=== PATIENT | male | born 1990 | race Caucasian/White ===

== ENCOUNTER 2017-03-31 11:15 | Emergency (ER) | payer OTHER ==
[~2017-03-31] VITALS: Ht 195.5 cm; Wt 98.9 kg
[~2017-03-31 11:15] MED LIST: AMOXICILLIN500 MG PO; ATARAX25 MG PO; BENADR; CLINDAMYCIN HC300 MG PO; CLINDAMYCIN150 MG PO; IBU800 M1 PO; KEFLEX500 M1 PO; KEFLEX500 MG PO; MOTRIN800 MG PO; NAPROSYN500 MG PO; VICODIN ES 7501 TAB PO; ZOVIRAX800 MG PO
[2017-03-31] MEDS ORDERED: NAPROSYN500 MG PO (14:15)
[2017-03-31] MEDS ORDERED: CYCLOBENZAPRINE10 MG PO (14:15)
== END 2017-03-31 14:27 | disposition home or self-care (01) ==
LOC: ED 11:15
DX: S50.02XA Contusion of left elbow, initial encounter (principal); S80.02XA Contusion of left knee, initial encounter; F17.200 Nicotine dependence, unspecified, uncomplicated; Z91.040 Latex allergy status; Z79.899 Other long term (current) drug therapy; V49.88XA Car occupant (driver) (passenger) injured in other specified transport accidents, initial encounter; Y93.89 Activity, other specified; Y92.89 Other specified places as the place of occurrence of the external cause; Y99.8 Other external cause status

== ENCOUNTER 2019-10-30 18:11 | Inpatient (IN) | payer SELFPAY ==
[~2019-10-30] VITALS: Ht 190.5 cm; Wt 86.0 kg
[~2019-10-30 18:11] MED LIST changes: +CEPHALEXIN500 M1 PO; +CYCLOBENZAPRINE10 MG PO; +SEPTDS PO
[2019-10-30 18:20] VITALS: BP 145/80
[2019-10-30 19:03] LABS: HEMATOCRIT 39.5 % (42.0-52.0); MEAN CELL VOLUME 86.6 fl (80.0-94.0); MEAN CORPUSCULAR HGB 29.8 pg (27.0-31.0); MEAN CORPUSCULAR HGB CONC 34.4 g/dl (33.0-37.0); MEAN PLATELET VOLUME 10.7 fl (9.6-12.3); PLATELET COUNT AUTOMATED 256 10*3/uL (130-400); RED BLOOD COUNT 4.56 10*6/uL (4.50-5.90); RED CELL DISTRI WIDTH 12.6 % (0-14.5); WHITE BLOOD COUNT 30.3 10*3/uL (4.8-10.8)
[2019-10-30 19:14] LABS: ACT PARTIAL THROMBO TIME 29.1 SECONDS (20.0-32.1)
[2019-10-30 19:18] LABS: ALBUMIN 3.4 gm/dl (3.1-4.5); ALKALINE PHOSPHATASE 94 U/L (45-117); BUN 12 mg/dl (7-24); CHLORIDE 97 mmol/L (98-107); CREATININE 1.16 mg/dL (0.70-1.30); LIPASE 37 U/L (73-393); POTASSIUM 3.7 mmol/L (3.5-5.1); SGOT/AST 6 IU/L (3-35); SGPT/ALT 19 U/L (12-78); SODIUM 130 mmol/L (136-145); TOTAL PROTEIN 7.6 gm/dL (6.4-8.2)
[2019-10-30 19:21] LABS: PLATELET SUFFICIENCY NORMAL (NORMAL); TOTAL CELLS COUNTED 100 #CELLS
[2019-10-30 19:30] VITALS: BP 146/80
[2019-10-30 20:30] VITALS: BP 142/78
[2019-10-30 21:00] VITALS: BP 143/75
--- NOTE | 2019-10-30 21:00 | NUR ---
Time: 2099 A 29 year old MALE admitted to 4E under services of ARJUN CANTU DO. Pt. arrived via bed from ER. Chief complaint: HYPERGLYCEMIA, CELLULITIS, AND SEPSIS. PATIENT ORIENTED TO THE FLOOR 4E, CHEST CELLULITIS OUTLINED UPON ADMISSION, ORDERS RECEIVED FROM DR. ARREOLA. PATIENT TAKES NO HOME MEDS. ADMISSION PAPERS REVIEWED AND COMPLETED. LOLLY JAMESON
[2019-10-31] VITALS: BP 141/74
[2019-10-31 06:25] LABS: HEMATOCRIT 34.4 % (42.0-52.0); MEAN CELL VOLUME 86.6 fl (80.0-94.0); MEAN CORPUSCULAR HGB 29.5 pg (27.0-31.0); MEAN PLATELET VOLUME 11.2 fl (9.6-12.3); PLATELET COUNT AUTOMATED 229 10*3/uL (130-400); RED BLOOD COUNT 3.97 10*6/uL (4.50-5.90); RED CELL DISTRI WIDTH 12.6 % (0-14.5); WHITE BLOOD COUNT 26.7 10*3/uL (4.8-10.8)
[2019-10-31 06:44] LABS: ALBUMIN 2.5 gm/dl (3.1-4.5); BUN 12 mg/dl (7-24); CHLORIDE 107 mmol/L (98-107); CHOLESTEROL 72 mg/dL (<200); CREATININE 0.59 mg/dL (0.70-1.30); POTASSIUM 3.3 mmol/L (3.5-5.1); SGOT/AST 18 IU/L (3-35); SGPT/ALT 17 U/L (12-78); SODIUM 136 mmol/L (136-145); TOTAL PROTEIN 6.5 gm/dL (6.4-8.2); TRIGLYCERIDES 83 mg/dl (<150); VLDL CHOLESTEROL 17 mg/dL (6-40)
[2019-10-31 06:50] LABS: ALKALINE PHOSPHATASE 84 U/L (45-117); FREE T4 1.53 ng/dl (0.76-1.46); HDL CHOLESTEROL 29 mg/dl (40-60); LDL CHOLESTEROL 26 mg/dL (9-159)
[2019-10-31 06:53] LABS: VITAMIN D, 25-HYDROXY 19.9 ng/mL (30-100)
[2019-10-31 07:23] LABS: TOTAL CELLS COUNTED 100 #CELLS
[2019-10-31 07:28] LABS: PLATELET SUFFICIENCY NORMAL (NORMAL)
[2019-10-31 07:29] LABS: BURR CELLS FEW
[2019-10-31 08:00] VITALS: BP 114/81
--- NOTE | 2019-10-31 08:30 | NUR ---
DR. NOLAN NOTIFIED OF EYELIDS SWOLLEN AND HIVES NOTED TO RIGHT FLANK AREA. SHE IS HERE ON FLOOR TO SEE PATIENT.
--- NOTE | 2019-10-31 10:00 | NUR ---
MEDICATED WITH BENADRYL 25MG IV FOR SWELLING/ REDNESS TO BOTH EYES AND CHEEKS. COMPLAINS OF ITCHING TO RIGHT FLANK AREA
--- NOTE | 2019-10-31 10:19 | NUR ---
PT TRANSFERED TO ICU ROOM 5 AT THIS TIME. PT A+O X3. POX 100% ON ROOM AIR. BP 128/77, NSR RATE 70-80. ORBITAL EDEMA NOTED BILATERALLY.
[2019-10-31 10:20] VITALS: BP 128/77
[2019-10-31 10:30] LABS: BILIRUBIN NEGATIVE (NEGATIVE); BLOOD 1+ (NEGATIVE); CLARITY SL CLOUDY (CLEAR); COLOR YELLOW (YELLOW); GLUCOSE 3+ (NEGATIVE); KETONE 3+ (NEGATIVE); NITRITE NEGATIVE (NEGATIVE); SPECIFIC GRAVITY 1.015 (1.005-1.030)
[2019-10-31 10:31] LABS: LEUKO ESTERASE NEGATIVE (NEGATIVE)
[2019-10-31 10:39] LABS: BACTERIA TRACE; MUCOUS 1+
[2019-10-31 12:00] VITALS: BP 136/75
[2019-10-31 16:00] VITALS: BP 128/66
--- NOTE | 2019-10-31 17:35 | NUR ---
EYES ARE LESS SWOLLEN. FEELS LIKE FACE IS NOT SWOLLEN ANYMORE.
[2019-10-31 20:00] VITALS: BP 132/58
--- NOTE | 2019-10-31 20:00 | NUR ---
Patient lying in bed, has no complaints at this time. Reddened area under right arm is significately smaller, still warm to touch. Patient states he is able to lift his arm with no pain. Patient hoping to go home soon since he has no insurance. Patient left with call light in reach.
[2019-11-01] VITALS: BP 133/74
[2019-11-01 04:00] VITALS: BP 128/62
[2019-11-01 05:42] LABS: BUN 12 mg/dl (7-24); CHLORIDE 108 mmol/L (98-107); CREATININE 0.59 mg/dL (0.70-1.30); POTASSIUM 4.2 mmol/L (3.5-5.1); SODIUM 139 mmol/L (136-145)
[2019-11-01 06:11] LABS: HEMATOCRIT 35.7 % (42.0-52.0); MEAN CELL VOLUME 88.1 fl (80.0-94.0); MEAN CORPUSCULAR HGB 29.6 pg (27.0-31.0); MEAN CORPUSCULAR HGB CONC 33.6 g/dl (33.0-37.0); PLATELET COUNT AUTOMATED 257 10*3/uL (130-400); RED BLOOD COUNT 4.05 10*6/uL (4.50-5.90); RED CELL DISTRI WIDTH 12.8 % (0-14.5); WHITE BLOOD COUNT 23.6 10*3/uL (4.8-10.8)
[2019-11-01 06:41] LABS: PLATELET SUFFICIENCY NORMAL (NORMAL); TOTAL CELLS COUNTED 100 #CELLS
[2019-11-01 08:00] VITALS: BP 129/70
--- NOTE | 2019-11-01 09:00 | NUR ---
[employer] Web Developer in to talk to patient. Patient states lives at home with his fiance and 2 yo child. There are 0 steps in the home. Physician: would like to follow with the resident clinic Pharmacy: [facility] Home health services: none Patient's level of ADLs: INDEPENDENT Patient has working utilities: yes DME: needs a glucometer and any diabetic supplies Follow-up physician's appointment after d/c: will be made by the hospitalist nurse director upon discharge Does patient want to access PORTAL?: no Discharge plan discussed with patient. He lives at home with his family. He is independent in his ADLs and ambulation. Discussed home needs and he states he will need a glucometer and diabetic supplies. Notified hospitalist nurse director. When medically stable he will be discharged to home. Kamilah from [facility] will see patient. He states his mom or his fiance will provide transportation on discharge. MERVAT LAZO
[2019-11-01] MEDS ORDERED: DOXYCYCLINE100 M3 PO (10:21)
[2019-11-01] MEDS ORDERED: ACCU-CHEK1 EAC2 MC (10:21)
[2019-11-01] MEDS ORDERED: LANTUS SOL100 UNIT/1 SC (10:21)
--- NOTE | 2019-11-01 10:32 | NUR ---
pt has had ice pack on right flank for itchiness now has hives under armpit dr loyola updated no other hives or facial swelling or redness
--- NOTE | 2019-11-01 10:38 | NUR ---
bendryl for hives
[2019-11-01] MEDS ORDERED: TEST STRIPS1 EACH MC (10:40)
[2019-11-01] MEDS ORDERED: HUMALOG100 UNIT/1 SC (10:40)
--- NOTE | 2019-11-01 10:49 | NUR ---
PT HAS ICE PACK ON RIGHT FLANK DUE TO "ITCHINESS" NOW PT HAS DEVELOPED RAISED HIVES [place], DR WHITESIDE UPDATED BENDRYL GIVEN, NO OTHER HIVES OR FACIAL SWELLING
--- NOTE | 2019-11-01 11:58 | NUR ---
PT BEING DISCHARGED WILL GO TO PHARMACY FOR HIS MEDS AND DIABETIC TEACHING
--- NOTE | 2019-11-01 12:04 | NUR ---
Nutrition Support Note: Pt admitted with daignosis of Type I DM and cellulitis. Pt with long history of DM but stated he lost weight and now believes he no longer is diabetic. Labs show glucose 252, HbA1c 10.6, and albumin 2.5. Went to visit pt and give diet education; pt was being discharged. Diet copy left with nurse. Encourage follow up if needed. Venus Carpio [employer] Neighborhood Worker
--- NOTE | 2019-11-01 12:15 | NUR ---
DC'D PT TAKEN TO PHARMACY FOR DIABETIC EDUCATION
== END 2019-11-01 12:15 | disposition home or self-care (01) | DRG 871 ==
LOC: ED 18:11 → EDHOLD 20:04 → 4E 20:32 → ICCU 10-31 10:13
PROVIDERS: Family Medicine; Internal Medicine; Nurse Practitioner Family; Student in an Organized Health Care Education/Training Program; ADMIT Family Medicine
DX: A41.9 Sepsis, unspecified organism (principal); E43 Unspecified severe protein-calorie malnutrition; L03.313 Cellulitis of chest wall; E87.1 Hypo-osmolality and hyponatremia; L02.213 Cutaneous abscess of chest wall; R65.20 Severe sepsis without septic shock; E87.8 Other disorders of electrolyte and fluid balance, not elsewhere classified; D64.9 Anemia, unspecified; E13.65 Other specified diabetes mellitus with hyperglycemia; E87.6 Hypokalemia; R79.82 Elevated C-reactive protein (CRP); F17.210 Nicotine dependence, cigarettes, uncomplicated; R79.89 Other specified abnormal findings of blood chemistry; E83.39 Other disorders of phosphorus metabolism; T78.49XA Other allergy, initial encounter; T36.8X5A Adverse effect of other systemic antibiotics, initial encounter; Y92.238 Other place in hospital as the place of occurrence of the external cause; Z71.6 Tobacco abuse counseling; Z91.040 Latex allergy status; Z68.23 Body mass index [BMI] 23.0-23.9, adult

== ENCOUNTER 2022-07-26 12:14 | Emergency (ER) | payer MEDICAID ==
[~2022-07-26] VITALS: Ht 195.5 cm; Wt 90.7 kg
[~2022-07-26 12:14] MED LIST changes: +ACCU-CHEK1 EAC2 MC; +DOXYCYCLINE100 M3 PO; +HUMALOG100 UNIT/1 SC; +LANTUS SOL100 UNIT/1 SC; +TEST STRIPS1 EACH MC
[2022-07-26 13:34] LABS: BASO # 0.1 10*3/uL (0.0-0.1); BASO % 0.7 % (0.0-1.0); EOS # 0.3 10*3/uL (0.0-0.4); EOS % 2.2 % (1.0-4.0); HEMATOCRIT 37.4 % (42.0-52.0); LYMPH # 4.1 10*3/uL (1.3-4.4); LYMPH % 31.4 % (27.0-41.0); MEAN CELL VOLUME 87.4 fl (80.0-94.0); MEAN CORPUSCULAR HGB 29.9 pg (27.0-31.0); MEAN CORPUSCULAR HGB CONC 34.2 g/dl (33.0-37.0); MEAN PLATELET VOLUME 10.6 fl (9.6-12.3); MONO # 0.8 10*3/uL (0.1-1.0); MONO % 6.3 % (3.0-9.0); NEUT # 7.8 10*3/uL (2.3-7.9); NEUT % 59.2 % (47.0-73.0); PLATELET COUNT AUTOMATED 350 10*3/uL (130-400); RED BLOOD COUNT 4.28 10*6/uL (4.50-5.90); RED CELL DISTRI WIDTH 13.1 % (0-14.5); WHITE BLOOD COUNT 13.1 10*3/uL (4.8-10.8)
[2022-07-26 13:47] LABS: ALKALINE PHOSPHATASE 109 U/L (46-116); BUN 9 mg/dl (9-23); CHLORIDE 98 mmol/L (98-107); LIPASE 36 U/L (12-53); POTASSIUM 3.2 mmol/L (3.4-5.1); SGPT/ALT 20 U/L (10-49); TOTAL PROTEIN 7.5 gm/dL (6.0-8.0)
[2022-07-26 16:24] LABS: BILIRUBIN Negative (Negative); BLOOD Trace-Lysed (Negative); CLARITY Clear (Clear); COLOR Yellow (Yellow); GLUCOSE 3+ (Negative); KETONE Negative (Negative); LEUKO ESTERASE Negative (Negative); NITRITE Negative (Negative); PH 5.5 (4.5-8.0); SPECIFIC GRAVITY >= 1.030 (1.001-1.030); UROBILINOGEN 0.2 E.U./dl (0.0-1.0)
[2022-07-26 17:06] LABS: BACTERIA TRACE; WBC 0-2 wbc/hpf (0-5)
[2022-07-26] MEDS ORDERED: METFORMIN HYDR500 MG PO (17:23)
[2022-07-26] MEDS ORDERED: ALLEGRA ALLERG180 M2 PO (17:23)
[2022-07-26] MEDS ORDERED: VIBRAMYCIN100 MG PO (17:23)
[2022-07-26] MEDS ORDERED: HYDROXYZINE HCL25 MG PO (17:23)
== END 2022-07-26 17:46 | disposition home or self-care (01) ==
LOC: ED 12:14
PROVIDERS: Nurse Practitioner Family
DX: E11.9 Type 2 diabetes mellitus without complications (principal); L00 Staphylococcal scalded skin syndrome; R10.84 Generalized abdominal pain; R19.7 Diarrhea, unspecified; Z88.1 Allergy status to other antibiotic agents; Z91.040 Latex allergy status; F17.210 Nicotine dependence, cigarettes, uncomplicated

== ENCOUNTER 2024-05-17 11:34 | Emergency (ER) | payer SELFPAY ==
[~2024-05-17] VITALS: Ht 195.5 cm; Wt 93.0 kg
[~2024-05-17 11:34] MED LIST changes: +ALLEGRA ALLERG180 M2 PO; +HYDROXYZINE HCL25 MG PO; +METFORMIN HYD1000 MG PO; +METFORMIN HYDR500 MG PO; +VIBRAMYCIN100 MG PO
[2024-05-17] MEDS ORDERED: INSULIN AS100 UNIT/3 SQ (11:58)
[2024-05-17] MEDS ORDERED: LANTUS SOL100 UNIT/1 SC (11:58)
[2024-05-17] MEDS ORDERED: HYDROmorphONE Hydrochloride 0.5 MG/0.5 ML SYRINGE IM ONE (12:00)
== END 2024-05-17 13:11 | disposition home or self-care (01) ==
LOC: ED 11:34
DX: T33.531A Superficial frostbite of right finger(s), initial encounter (principal); E10.9 Type 1 diabetes mellitus without complications; E03.9 Hypothyroidism, unspecified; F12.90 Cannabis use, unspecified, uncomplicated; F17.210 Nicotine dependence, cigarettes, uncomplicated; Z88.1 Allergy status to other antibiotic agents; Z91.040 Latex allergy status

== ENCOUNTER 2024-11-08 15:29 | Emergency (ER) | payer OTHER ==
[~2024-11-08] VITALS: Ht 195.5 cm; Wt 103.4 kg
[~2024-11-08 15:29] MED LIST changes: +INSULIN AS100 UNIT/3 SQ
[2024-11-08] MEDS ORDERED: ANTIFUNGAL CRE141 GM T (16:47)
== END 2024-11-08 16:59 | disposition home or self-care (01) ==
LOC: ED 15:29
DX: B35.6 Tinea cruris (principal); B36.9 Superficial mycosis, unspecified; R19.7 Diarrhea, unspecified; K62.89 Other specified diseases of anus and rectum; Z79.4 Long term (current) use of insulin; Z88.1 Allergy status to other antibiotic agents; Z91.040 Latex allergy status; Z87.891 Personal history of nicotine dependence

== ENCOUNTER 2024-11-28 04:42 | Emergency (ER) | payer OTHER ==
[~2024-11-28] VITALS: Ht 195.5 cm; Wt 99.8 kg
[~2024-11-28 04:42] MED LIST changes: +ANTIFUNGAL CRE141 GM T
[2024-11-28] MEDS ORDERED: GOOD SENSE ANTI25 MG PO (05:24)
[2024-11-28] MEDS ORDERED: CEPHALEXIN500 M1 PO (05:24)
== END 2024-11-28 05:30 | disposition home or self-care (01) ==
LOC: ED 04:42
DX: S80.862A Insect bite (nonvenomous), left lower leg, initial encounter (principal); S80.861A Insect bite (nonvenomous), right lower leg, initial encounter; S30.860A Insect bite (nonvenomous) of lower back and pelvis, initial encounter; S20.369A Insect bite (nonvenomous) of unspecified front wall of thorax, initial encounter; S40.862A Insect bite (nonvenomous) of left upper arm, initial encounter; S40.861A Insect bite (nonvenomous) of right upper arm, initial encounter; L84 Corns and callosities; E10.9 Type 1 diabetes mellitus without complications; F12.90 Cannabis use, unspecified, uncomplicated; F17.210 Nicotine dependence, cigarettes, uncomplicated; Z88.1 Allergy status to other antibiotic agents; Z91.040 Latex allergy status; Z79.899 Other long term (current) drug therapy; W57.XXXA Bitten or stung by nonvenomous insect and other nonvenomous arthropods, initial encounter; Y93.89 Activity, other specified; Y92.89 Other specified places as the place of occurrence of the external cause; Y99.8 Other external cause status

== ENCOUNTER 2024-12-15 11:57 | Emergency (ER) | payer OTHER ==
[~2024-12-15] VITALS: Ht 182.8 cm; Wt 94.3 kg
[~2024-12-15 11:57] MED LIST changes: +GOOD SENSE ANTI25 MG PO
[2024-12-15] MEDS ORDERED: SODIUM CHLORIDE 0.9% 1,000 ML IV ONE (12:15)
[2024-12-15] MEDS ORDERED: Ondansetron Hydrochloride 4 MG/2 ML VIAL IV ONE (12:20)
[2024-12-15] MEDS ORDERED: AMITRIPTYLINE50 MG PO (12:30)
[2024-12-15] MEDS ORDERED: GABAPENTIN100 M2 PO (12:30)
[2024-12-15 12:32] LABS: BASO # 0.1 10*3/uL (0.0-0.1); BASO % 0.8 % (0.0-1.0); EOS # 0.3 10*3/uL (0.0-0.4); EOS % 3.3 % (1.0-4.0); MEAN CELL VOLUME 87.4 fl (80.0-94.0); MEAN CORPUSCULAR HGB 29.4 pg (27.0-31.0); MEAN PLATELET VOLUME 10.6 fl (9.6-12.3); MONO # 0.5 10*3/uL (0.1-1.0); MONO % 4.9 % (3.0-9.0); NEUT # 5.9 10*3/uL (2.3-7.9); NEUT % 63.9 % (47.0-73.0); NUCLEATED RED BLOOD CELL 0.0 % (0.0-0.0); NUCLEATED RED BLOOD CELL 0.0 10*3/uL (0.0-0.0); PLATELET COUNT AUTOMATED 348 10*3/uL (130-400); RED CELL DISTRI WIDTH 11.9 % (0-14.5)
[2024-12-15 12:34] LABS: VENOUS BLOOD GAS O2 SAT 97.6 % (60.0-85.0)
[2024-12-15 12:58] LABS: BUN 19 mg/dl (9-23)
[2024-12-15] MEDS ORDERED: INSULIN REGULAR, HUMAN 1 UNIT/0.01 ML IV ONE (13:05)
[2024-12-15 14:28] LABS: BILIRUBIN Negative (Negative); BLOOD Trace-Lysed (Negative); CLARITY Clear (Clear); COLOR Yellow (Yellow); KETONE Negative (Negative); LEUKO ESTERASE Negative (Negative); NITRITE Negative (Negative); PH 5.5 (4.5-8.0); SPECIFIC GRAVITY >= 1.030 (1.001-1.030); UROBILINOGEN 0.2 E.U./dl (0.0-1.0)
[2024-12-15 14:33] LABS: URINE AMPHETAMINES Negative (1000ng/ml); URINE BARBITURATES Negative (200ng/ml); URINE BENZODIAZEPINES Negative (200ng/ml); URINE CANNABINOIDS (THC) Positive (50ng/ml); URINE COCAINE Negative (300ng/ml); URINE METHADONE Negative (300ng/ml); URINE OPIATES Negative (300ng/ml); URINE PHENCYCLIDINE Negative (25ng/ml)
[2024-12-15 14:49] LABS: BACTERIA TRACE; WBC 0-2 wbc/hpf (0-5)
== END 2024-12-15 15:15 | disposition home or self-care (01) ==
LOC: ED 11:57
PROVIDERS: Nurse Practitioner Family
DX: E11.65 Type 2 diabetes mellitus with hyperglycemia (principal); E03.9 Hypothyroidism, unspecified; F12.90 Cannabis use, unspecified, uncomplicated; F17.210 Nicotine dependence, cigarettes, uncomplicated; Z91.040 Latex allergy status; Z88.8 Allergy status to other drugs, medicaments and biological substances